=== PATIENT | male | born 1980 | race Two or more races ===

== ENCOUNTER 2018-12-15 08:53 | Emergency (ER) | payer MEDICAID, OTHER ==
[~2018-12-15] VITALS: Ht 175.3 cm; Wt 81.6 kg
[~2018-12-15 08:53] MED LIST: BACTRIM-DS1 EA PO; HYDROCODON-ACE1 EA15 ORAL; NKM; OFLOXACIN10 ML OP
--- NOTE | 2018-12-15 08:55 | NUR ---
pt. not in room
[2018-12-15 09:00] VITALS: BP 129/85
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
--- NOTE | 2018-12-15 09:02 | NUR ---
ED Nurse Note: ice packs applied.
--- NOTE | 2018-12-15 09:25 | NUR ---
ED Nurse Note: med given and xray contacted.
[2018-12-15] MEDS ORDERED: HYDROcodone/Acetamin 5/325 tab PO ONE (09:30)
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
--- NOTE | 2018-12-15 10:32 | Diagnostic Imaging Report ---
EXAM: XR Right Hand Complete, 3 or More Views CLINICAL HISTORY: PAIN TECHNIQUE: Frontal, lateral and oblique views of the right hand. COMPARISON: No relevant prior studies available. FINDINGS: Bones/joints: Comminuted angulated fracture distal radius extending to the radiocarpal articular surface. No dislocation. Soft tissues: Soft tissue swelling. No radiopaque foreign body. IMPRESSION: Comminuted angulated fracture distal radius extending to the radiocarpal articular surface. No dislocation.
--- NOTE | 2018-12-15 10:32 | Diagnostic Imaging Report ---
EXAM: XR Right Wrist Complete, 3 or More Views CLINICAL HISTORY: PAIN TECHNIQUE: Frontal, lateral and oblique views of the right wrist. COMPARISON: No relevant prior studies available. FINDINGS: Bones/joints: Comminuted angulated fracture distal radius extending to the radiocarpal articular surface. No dislocation. Soft tissues: Diffuse soft tissue swelling. No radiopaque foreign body. IMPRESSION: 1. Comminuted angulated fracture distal radius extending to the radiocarpal articular surface. No dislocation. 2. Diffuse soft tissue swelling.
[2018-12-15] MEDS ORDERED: NORCO 5-325 TA1 EACH ORAL (10:56)
[2018-12-15] MEDS ORDERED: IBUPROFEN600 MG ORAL (10:56)
[2018-12-15 11:38] VITALS: BP_SYST 121; BP_SYST 129; BP_DIAS 82; BP_DIAS 85
--- NOTE | 2018-12-15 11:39 | NUR ---
ED Nurse Note: Pt cleared by health care Provider for discharge. DC instructions/prescription was given and explained to pt and verbalized understanding of teachings. All medical deviecs such as ID band removed. Pt is AAO x4, ambulatory and left with all personal belongings.
== END 2018-12-15 11:39 | disposition home or self-care (01) ==
LOC: EMR 09:20
DX: S52.501A Unspecified fracture of the lower end of right radius, initial encounter for closed fracture (principal); W05.2XXA Fall from non-moving motorized mobility scooter, initial encounter; Y92.9 Unspecified place or not applicable
CPT/HCPCS: 29125; 99284

== ENCOUNTER 2019-01-05 01:21 | Emergency (ER) | payer MEDICAID ==
[~2019-01-05] VITALS: Ht 177.8 cm; Wt 85.3 kg
[~2019-01-05 01:21] MED LIST changes: +IBUPROFEN600 MG ORAL; +NORCO 5-325 TA1 EACH ORAL
[2019-01-05 01:40] VITALS: BP 149/91
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
[2019-01-05 01:50] VITALS: BP 149/91
--- NOTE | 2019-01-05 01:51 | NUR ---
ER Nurse Note: Pt seen, treated, medically cleared for discharge by ERMD. Discharge instuctions and prescriptions given with repeat verbalization by pt. Emphasized to follow up with primay care provider/ortho. All orders completed per ERMD orders. Pt a&ox4, VSS, no signs of distress. Pt denies pain. Splint applied on RT wrist. ID band removed. Pt ambulaitory with steady gait, left with all belongings, left with own transportation.
--- NOTE | 2019-01-05 01:51 | Emergency Room Report ---
History of Present Illness General Chief Complaint: Pain Source: Patient Present Illness HPI Patient presents with complaints of discomfort to the right wrist reports that his splint has fallen off He reports that he has been having difficulty following up secondary to his insurance he was referred to a clinic by his HMO however did not have orthopedic capacity Denies any recent fall or trauma denies any elbow pain patient has discomfort distally to that wrist Denies any other neck pain or photophobia Allergies: Coded Allergies: No Known Allergies (Unverified , 06/22/12) Patient History Past Medical History: see triage record Pertinent Family History: none Reviewed Nursing Documentation: PMH: Agreed; PSxH: Agreed Nursing Documentation-PMH Past Medical History: No Stated History Review of Systems All Other Systems: negative except mentioned in HPI Physical Exam Vital Signs Date Time Temp Pulse Resp B/P (MAP) Pulse Ox O2 Delivery O2 Flow Rate FiO2 01/05/19 01:33 98.2 112 18 149/91 (110) 97 Room Air Sp02 EP Interpretation: reviewed, normal General Appearance: well appearing, no apparent distress Head: normocephalic, atraumatic Eyes: bilateral eye PERRL, bilateral eye EOMI ENT: normal pharynx Neck: supple Respiratory: lungs clear, normal breath sounds Cardiovascular #1: regular rate, rhythm Gastrointestinal: normal bowel sounds, non tender, soft Musculoskeletal: swelling - Right distal wrist neurovascularly intact sensory intact Neurologic: alert, oriented x3, responsive Skin: other - Above Lymphatic: no adenopathy Procedures Splinting Splinting : Consent: Verbal Location: Right wrist Pre-Made Type: velcro Splint: volar Pre-Proc Neuro Vasc Exam: normal Post-Proc Neuro Vasc Exam: normal Patient Tolerated: Well Complications: None Medical Decision Making Diagnostic Impression: Primary Impression: Wrist fracture ER Course Given the history and presentation imaging from previous visit is reviewed which did show obvious fracture patient is Again educated regarding the importance of close orthopedic follow-up he was provided with an orthopedic clinic Follow-up as well And will return with any changes Last Vital Signs Date Time Temp Pulse Resp B/P (MAP) Pulse Ox O2 Delivery O2 Flow Rate FiO2 01/05/19 01:33 98.2 112 18 149/91 (110) 97 Room Air Status: improved Disposition: HOME, SELF-CARE Condition: Stable [facility] Open 24 hour /7 days a week by Appointment Only [address] [facility] [id number] Patient Instructions: Wrist Fracture, [id number] Additional Instructions: Patient is provided with the discharge instructions notified to follow up with primary doctor in the next 2-3 days otherwise return to the er with any worsening symptoms. Please note that this report is being documented using DRAGON technology. This can lead to erroneous entry secondary to incorrect interpretation by the dictating instrument. Danielle Lebron DO Jan 05, 2019 01:50
== END 2019-01-05 01:50 | disposition home or self-care (01) ==
LOC: EMR 01:46
DX: S62.101A Fracture of unspecified carpal bone, right wrist, initial encounter for closed fracture (principal); X58.XXXA Exposure to other specified factors, initial encounter; Y92.9 Unspecified place or not applicable
CPT/HCPCS: 99282

== ENCOUNTER 2019-12-28 08:46 | Emergency (ER) | payer SELFPAY ==
[~2019-12-28] VITALS: Ht 177.8 cm; Wt 85.7 kg
[2019-12-28 09:09] VITALS: BP 150/87
[2019-12-28] MEDS ORDERED: DiphenhydrAMINE 25mg Tab ORAL ONE (09:15)
--- NOTE | 2019-12-28 09:43 | Emergency Room Report ---
History of Present Illness General Chief Complaint: Skin Rash/Abscess Source: Patient Present Illness HPI Patient states that for the past day he has had an itchy rash. He associates the rash with being out in the sun 2 days ago. Although, he admits that he has used a new soap and a new deodorant just before this. He denies taking any type of medications. He denies supplements or drug use. He denies recent illness. He denies cough or congestion. He denies fever or chills. He denies headache or neck pain. He denies cough or congestion. He has no other complaints. Allergies: Coded Allergies: No Known Allergies (Unverified , 06/22/12) COVID-19 Screening Contact w/high risk pt: No Recent Travel to affected area: No Experienced COVID-19 symptoms?: No COVID-19 Testing performed ENVIRONMENTAL HEALTH AIDE: No Patient History Past Medical History: none, see triage record Social History: Denies: smoking, alcohol use, drug use Reviewed Nursing Documentation: PMH: Agreed; PSxH: Agreed Nursing Documentation-PMH Past Medical History: No Stated History Review of Systems All Other Systems: negative except mentioned in HPI Physical Exam Vital Signs Date Time Temp Pulse Resp B/P (MAP) Pulse Ox O2 Delivery O2 Flow Rate FiO2 12/28/19 08:56 98.2 105 18 150/87 (108) 97 Room Air Sp02 EP Interpretation: reviewed, normal General Appearance: no apparent distress, alert, GCS 15, non-toxic Head: normocephalic, atraumatic Eyes: bilateral eye normal inspection ENT: hearing grossly normal, normal pharynx, no angioedema, normal voice Neck: normal inspection Respiratory: no respiratory distress, no retraction, no accessory muscle use, speaking full sentences Rectal: deferred Musculoskeletal: back normal, normal range of motion, gait/station normal, non- tender Neurologic: alert, motor strength/tone normal, oriented x3, sensory intact, responsive, speech normal Psychiatric: judgement/insight normal, memory normal, mood/affect normal, no suicidal/homicidal ideation Skin: other - diffuse wheels with excoriations Medical Decision Making Diagnostic Impression: Primary Impression: Hives Additional Impression: Allergic reaction ER Course This patient has physical exam findings consistent with hives. Likely this is secondary to the new laundry soap. There is no evidence of anaphylaxis. Overall the patient's evaluation is benign. I will place the patient on Benadryl and Zyrtec. The patient is given close return precautions and follow- up instructions. Last Vital Signs Date Time Temp Pulse Resp B/P (MAP) Pulse Ox O2 Delivery O2 Flow Rate FiO2 12/28/19 09:09 98.2 78 18 150/87 97 Room Air Status: improved Disposition: HOME, SELF-CARE Condition: Improved Radha Reynolds DO Dec 28, 2019 09:42
[2019-12-28] MEDS ORDERED: ZYRTEC10 MG ORAL (09:45)
[2019-12-28 09:50] VITALS: BP 150/87
== END 2019-12-28 10:20 | disposition home or self-care (01) ==
LOC: EMR 09:38
DX: L50.9 Urticaria, unspecified (principal); T78.40XA Allergy, unspecified, initial encounter; X58.XXXA Exposure to other specified factors, initial encounter
CPT/HCPCS: 99282